=== PATIENT | female | born 1965 | race Caucasian/White ===

== ENCOUNTER 2017-12-07 20:00 | Emergency (ER) | payer OTHER, SELFPAY ==
[2017-12-07 20:02] VITALS: BP 154/75; PULSE 124; RESP 17; TEMP 36.8; O2SAT 97; BMI 28.8
[2017-12-07 20:11] LABS: Bedside Glucose 497 mg/dL (70-110)
[2017-12-07] MEDS: Ondansetron 4 MG/2 ML Vial IV (21:00)
[2017-12-07] MEDS: 0.9% Normal Saline 1,000 ML 999 ML IV (21:00)
[2017-12-07 21:29] LABS: Bacteria 0 SEEN /hpf (None Seen); Mucous, Urine 0 SEEN /hpf (<or=2+); Red Blood Cells-Urine 0 SEEN /hpf (0-5); White Blood Cells 0 SEEN /hpf (0-5)
[2017-12-07 21:29] LABS: Absolute Lymphocyte Count 0.96 X10^3/ul (0.83-4.51); Absolute Neutrophil Count 4.6 X10^3/uL (2.0-7.7); Basophil# 0.02 X10^3/uL; Basophil% 0.3 % (0-1); Hematocrit 37.1 % (37-47); Hemoglobin 12.4 g/dl (12.0-15.0); Lymphocyte # 0.96 X10^3/ul (4.0); Lymphocyte % 15.3 % (19-41); Mean Corp Hgb Conc 33.4 g/gl (32-36); Mean Corpuscular Hgb 30.8 pg (27.0-32.0); Mean Corpuscular Volume 92.1 fL (81-99); Mean Platelet Vol. 10.7 fl (6.2-12.0); Monocyte# 0.66 X10^3/uL; Monocyte% 10.5 % (0-10); Neutrophil # 4.64 X10^3/uL (2.7-7.7); Neutrophil % 73.9 % (47-70); POSITIVE COUNT NO; POSITIVE DIFFERENTIAL NO; POSITIVE MORPHOLOGY NO; Platelet Count 327 K/mm3 (150-450); RBC Distribution Width CV 12.9 % (11.6-14.6); RBC Distribution Width SD 43.5 fl (35.1-43.9); Red Blood Count 4.03 M/mm3 (4.2-5.4); White Blood Count 6.3 K/mm3 (4.4-11.0)
[2017-12-07 21:34] LABS: Color, Urine Yellow (Yellow); Glucose, Dipstick 1000 mg/dl (Normal); Leukocyte Esterase-Dipstick 25 /ul (Negative); Nitrite-Dipstick Negative (Negative); Occult Blood-Urine Negative /ul (Negative); Protein-Dipstick Negative (Negative); Specific Gravity, Urine 1.015 (1.002-1.030); Urine Bilirubin Dipstick Negative (Negative); Urine Clarity Clear (Clear); Urine Urobilinogen Normal (Normal)
[2017-12-07 21:37] LABS: Anion Gap 12 (5-15); BUN 34 mg/dL (7-18); BUN/Creat Ratio 21.1 RATIO (10-20); Calcium,Total 10.6 mg/dL (8.5-10.1); Chloride 95 mmol/L (98-107); Creatinine, Serum 1.61 mg/dL (0.55-1.02); EST Glomerular Filtration Rate 36 mL/min (>60); Est Glom Filt Rate - Afr Amer 43 mL/min (>60); Estimated Creatinine Clearance 39.75 ml/min; Glucose 435 mg/dL (74-106); Potassium 4.1 mmol/L (3.5-5.1); Sodium Level 134 mmol/L (136-145)
[2017-12-07 21:43] LABS: Ketone-Dipstick 150 mg/dl (Negative)
[2017-12-07 21:44] LABS: Squamous Epithelial Cells - UA 0-5 SEEN /hpf (5-10)
[2017-12-07 22:27] VITALS: BP 131/68; PULSE 101; RESP 16; O2SAT 100
[2017-12-07 22:51] LABS: Bedside Glucose 321 mg/dL (70-110)
--- NOTE | 2017-12-07 23:17 | ED.DCSUM_ITS ---
History of Present Illness Chief Complaint: Hyperglycemia Informant: Patient Onset: Today Context: Gradual Onset Timing: Continuous Quality: nausea, malaise Location: generally Current Severity: Moderate Maximum Severity: Moderate Worsened by: nothing Relieved by: nothing Narrative: Patient is a type I diabetic, she states she has been very busy, moving, etc., and accidentally forgot to take a dose of insulin, and thinks that she took her short-acting insulin last night on accident instead of her Lantus. No infection symptoms that started yesterday. Denies any dyspnea today or fevers or lightheadedness, she denies any polyuria, but feels like she could use some fluids. She states she has been in DKA before and does not feel like she is that bad, but she got home tonight, checked her blood sugar and it read high so she injected 10 units of NovoLog and came to the ED. - Past Medical History (1) Diabetes mellitus type 1 Status: Chronic (2) Hyperlipidemia Status: Chronic (3) Hypothyroidism Status: Chronic Past Medical History - Allergies and Home Meds Allergies/Adverse Reactions: Allergies Penicillins Allergy (Severe, Verified 12/07/17 20:00) Chest tightness Primary Care Physician: Conrado Prater MD [Primary Care Provider] - Lives: Spouse/ Significant Other Smoking Status: Never smoker Review of Systems All systems negative except as indicated General: Reports: Malaise Gastrointestinal: Reports: Nausea Physical Exam Vital Signs/Narrative: Vital Signs Temp Pulse Resp BP Pulse Ox 12/07/17 22:27 101 H 16 131/68 H 100 12/07/17 20:02 98.3 F 124 H 17 154/75 H 97 General: Well nourished, Well developed, - - nad Head: Normocephalic, Atraumatic Eyes: Perrl, EOMI ENT: Moist mucous membranes, No rhinorrhea Neck: Supple, Nontender Cardiovascular: Regular rate, Regular rhythm, No murmurs, Tachycardia Respiratory: No distress, CTA bilaterally, Chest nontender Abdomen: Soft, Nontender, Nondistended, Normal bowel sounds Back: Nontender, Normal Inspection Extremities: Nontender, No edema Skin: Normal color, No rash Neurological: Alert, Oriented x3, Cranial nerves II-XII grossly intact, Normal Strength, Normal Sensation Psychological: Normal affect Diagnostic/Tx/Re-eval Laboratory Results 08/02/1412/07/17 12/07/17 Range/Units 20:07 21:03 21:03 WBC 6.3 (4.4-11.0) K/mm3 RBC 4.03 L (4.2-5.4) M/mm3 Hgb 12.4 (12.0-15.0) g/dl Hct 37.1 (37-47) % MCV 92.1 (81-99) fL MCH 30.8 (27.0-32.0) pg MCHC 33.4 (32-36) g/gl RDW 12.9 (11.6-14.6) % RDW Differential 43.5 (35.1-43.9) fl Plt Count 327 (150-450) K/mm3 MPV 10.7 (6.2-12.0) fl Immature Gran % (Auto) 0.000 (0.0-0.9) % Neut % (Auto) 73.9 H (47-70) % Lymph % (Auto) 15.3 L (19-41) % [place] % (Auto) 10.5 H (0-10) % Eos % (Auto) 0.0 (0-5) % Baso % (Auto) 0.3 (0-1) % Absolute Neuts (auto) 4.6 (2.0-7.7) X10^3/uL Absolute Lymphs (auto) 0.96 (0.83-4.51) X10^3/ul Total Counted Not Reportable Sodium 134 L (136-145) mmol/L Potassium 4.1 (3.5-5.1) mmol/L Chloride 95 L (98-107) mmol/L Carbon Dioxide 27.0 (21.0-32.0) mmol/L Anion Gap 12 (5-15) BUN 34 H (7-18) mg/dL Creatinine 1.61 H (0.55-1.02) mg/dL Estim Creat Clear Calc 39.75 ml/min Est GFR (MDRD) Af Amer 43 L (>60) mL/min Est GFR (MDRD) Non-Af 36 L (>60) mL/min BUN/Creatinine Ratio 21.1 H (10-20) RATIO Glucose 435 H (74-106) mg/dL Calcium 10.6 H (8.5-10.1) mg/dL Urine Color (Yellow) Urine Clarity (Clear) Urine pH (5.0 - 8.0) Ur Specific [place] (1.002-1.030) Urine Protein (Negative) mg/dl Urine Glucose (UA) (Normal) mg/dl Urine Ketones (Negative) mg/dl Urine Occult Blood (Negative) /ul Urine Nitrite (Negative) Urine Bilirubin (Negative) mg/dL Urine Urobilinogen (Normal) mg/dl Ur Leukocyte Esterase (Negative) /ul Urine RBC (0-5) /hpf Urine WBC (0-5) /hpf Ur Squamous Epith Cells (5-10) /hpf Urine Bacteria (None Seen) /hpf Urine Mucus (<or=2+) /hpf Acetone Level (NEG) POC Glucose 497 H* (70-110) mg/dL 12/07/17 12/07/17 12/07/17 Range/Units 21:03 21:21 22:47 WBC (4.4-11.0) K/mm3 RBC (4.2-5.4) M/mm3 Hgb (12.0-15.0) g/dl Hct (37-47) % MCV (81-99) fL MCH (27.0-32.0) pg MCHC (32-36) g/gl RDW (11.6-14.6) % RDW Differential (35.1-43.9) fl Plt Count (150-450) K/mm3 MPV (6.2-12.0) fl Immature Gran % (Auto) (0.0-0.9) % Neut % (Auto) (47-70) % Lymph % (Auto) (19-41) % [place] % (Auto) (0-10) % Eos % (Auto) (0-5) % Baso % (Auto) (0-1) % Absolute Neuts (auto) (2.0-7.7) X10^3/uL Absolute Lymphs (auto) (0.83-4.51) X10^3/ul Total Counted Sodium (136-145) mmol/L Potassium (3.5-5.1) mmol/L Chloride (98-107) mmol/L Carbon Dioxide (21.0-32.0) mmol/L Anion Gap (5-15) BUN (7-18) mg/dL Creatinine (0.55-1.02) mg/dL Estim Creat Clear Calc ml/min Est GFR (MDRD) Af Amer (>60) mL/min Est GFR (MDRD) Non-Af (>60) mL/min BUN/Creatinine Ratio (10-20) RATIO Glucose (74-106) mg/dL Calcium (8.5-10.1) mg/dL Urine Color Yellow (Yellow) Urine Clarity Clear (Clear) Urine pH 6.0 (5.0 - 8.0) Ur Specific [place] 1.015 (1.002-1.030) Urine Protein Negative (Negative) mg/dl Urine Glucose (UA) 1000 H (Normal) mg/dl Urine Ketones 150 H (Negative) mg/dl Urine Occult Blood Negative (Negative) /ul Urine Nitrite Negative (Negative) Urine Bilirubin Negative (Negative) mg/dL Urine Urobilinogen Normal (Normal) mg/dl Ur Leukocyte Esterase 25 H (Negative) /ul Urine RBC 0 SEEN (0-5) /hpf Urine WBC 0 SEEN (0-5) /hpf Ur Squamous Epith Cells 0-5 SEEN (5-10) /hpf Urine Bacteria 0 SEEN (None Seen) /hpf Urine Mucus 0 SEEN (<or=2+) /hpf Acetone Level MODERATE H (NEG) POC Glucose 321 H (70-110) mg/dL - Medical Decision Making Labs are remarkable for renal insufficiency with a creatinine of 1.61, she was 0.92, but the last available measurement was 2 years ago. Unknown if that is acute or not, she will follow-up for a repeat in the near future. She did have moderate ketones, but has she has no elevated anion gap. Blood sugar was in 400s, we monitored her since she did 10 units of NovoLog prior to arrival, she came down to the 320s after a liter of IV fluid and Zofran. She felt much better. No signs of any infection on exam or ancillary testing. I think she is stable to be discharged home, she is not in DKA. She is comfortable going home and continuing to manage her blood sugar there on her own. ED Disposition - Plan for ED Patient: Disposition: Home or Assisted Living Chief Complaint: Hyperglycemia Diagnosis: Hyperglycemia due to type 1 diabetes mellitus, Renal insufficiency Instructions: ED Hyperglycemia Diabetic, ED Insufficiency Renal Referrals: Conrado Prater MD [Primary Care Provider] - 5-7 Days
[2017-12-07 23:25] LABS: Bedside Glucose 304 mg/dL (70-110)
== END 2017-12-07 23:35 | disposition home or self-care (01) ==
PROVIDERS: Emergency Provider Emergency Medicine; Family Provider Family Medicine; PCP Family Medicine
DX: E10.65 Type 1 diabetes mellitus with hyperglycemia (principal); N28.9 Disorder of kidney and ureter, unspecified; E03.9 Hypothyroidism, unspecified; E78.5 Hyperlipidemia, unspecified
CPT/HCPCS: 80048; 81001; 82009; 82962; 85025; 99283; J2405